=== PATIENT | male | born 2000 | race Caucasian/White ===

== ENCOUNTER 2022-08-25 00:55 | Emergency (ER) | payer MEDICAID ==
[~2022-08-25] VITALS: Ht 177.8 cm; Wt 124.4 kg
[2022-08-25 02:34] LABS: Albumin 4.5 g/dL (3.4-5.0); BUN/Creatinine Ratio 16.7; Calcium 9.7 mg/dL (8.5-10.1); Potassium 4.1 mmol/L (3.5-5.1)
[2022-08-25 02:35] LABS: Basophils # (auto) 0 10 ^3/uL (0-0.2); Eosinophils # (auto) 0 10 ^3/uL (0-0.8); Hemoglobin 18.1 g/dL (13.5-17.5); Lymphocytes # (auto) 1.5 10 ^3/uL (0.4-5.4); Mean Corpuscular Hemoglobin 31.4 pg (28.0-32.0); Mean Corpuscular Volume 90.9 fL (80.0-100.0); Monocytes # (auto) 0.8 10 ^3/uL (0-1.3)
[2022-08-25 02:37] LABS: Basophils % (auto) 0.2 % (0.0-2.0); Bilirubin, Total 1.2 mg/dL (0.2-1.0); Hematocrit 52.2 % (41.0-53.0); Lymphocytes % (auto) 20.2 % (10.0-50.0); Mean Corpuscular Hgb Conc. 34.6 g/dL (32.0-36.0); Monocytes % (auto) 10.4 % (0.0-12.0); Neutrophils % (auto) 69.2 % (37.0-80.0); Nucleated Red Blood Cells % 0.4 %; Red Blood Cells 5.75 10^6/uL (4.5-5.90); Red Cell Distribution Width 12.9 % (11.8-14.3); Total Protein 8.1 g/dL (6.4-8.2); White Blood Cell 7.3 10^3/uL (4.4-10.8)
[2022-08-25] MEDS ORDERED: DICY10CA PO (03:32)
[2022-08-25] MEDS ORDERED: METO-281 PO (03:32)
[2022-08-25] MEDS ORDERED: OMEP-263 PO (03:32)
[2022-08-25 04:56] VITALS: BP 140/88
== END 2022-08-25 04:58 | disposition home or self-care (01) ==
LOC: ER 00:55
DX: K29.70 Gastritis, unspecified, without bleeding (principal); K21.9 Gastro-esophageal reflux disease without esophagitis; Z90.49 Acquired absence of other specified parts of digestive tract
CPT/HCPCS: 36415; 74176; 80053; 82150; 83690; 85025

== ENCOUNTER 2024-07-11 09:11 | Emergency (ER) | payer MEDICAID, OTHER ==
[~2024-07-11] VITALS: Ht 180.3 cm; Wt 122.7 kg
[~2024-07-11 09:11] MED LIST: DICY10CA PO; METO-281 PO; OMEP-448 PO
[2024-07-11 09:30] VITALS: PULSE 114; RESP 11; TEMP 98.6; O2SAT 94
[2024-07-11 09:44] LABS: Mean Corpuscular Volume 96.8 fL (80.0-100.0); Platelet Count (auto) 571 10^3/uL (140-450)
[2024-07-11 09:49] LABS: Hematocrit 50.6 % (41.0-53.0); Hemoglobin 17.9 g/dL (13.5-17.5); Mean Corpuscular Hemoglobin 34.2 pg (28.0-32.0); Mean Corpuscular Hgb Conc. 35.3 g/dL (32.0-36.0); Red Blood Cells 5.23 10^6/uL (4.5-5.90); Red Cell Distribution Width 12.9 % (11.8-14.3); White Blood Cell 9.4 10^3/uL (4.4-10.8)
[2024-07-11 09:53] LABS: Chloride 107 mmol/L (98-107); Potassium 4.1 mmol/L (3.5-5.1); Sodium 142 mmol/L (136-145)
[2024-07-11 09:54] LABS: Anion Gap 9 (5-15); Calcium 9.4 mg/dL (8.7-10.4); Carbon Dioxide 26 mmol/L (20-31)
[2024-07-11 09:59] LABS: BUN/Creatinine Ratio 8.4 (10.0-20.0); Blood Urea Nitrogen 8 mg/dL (9-23); Glucose 104 mg/dL (74-106)
[2024-07-11 10:10] LABS: Basophils % (manual) 0 (0.0-2.0); Blast Cells 0; Metamyelocytes % 0; Myelocytes % 0; Promyelocytes % 0; Reactive Lymphocytes 0
[2024-07-11 11:53] VITALS: BP 146/68; PULSE 103; RESP 14; O2SAT 98
[2024-07-11 12:08] LABS: Band Neutrophils % (manual) 5; Eosinophils % (manual) 1 (0-7); Lymphocytes % (manual) 25 (10.0-50.0); Monocytes % (manual) 5 (0-12); Platelet Estimate Increased
== END 2024-07-11 12:01 | disposition home or self-care (01) ==
LOC: EDUNIT# 09:11 → ER 09:11 → EDBD 09:11 → ER 12:01
DX: S80.11XA Contusion of right lower leg, initial encounter (principal); S00.83XA Contusion of other part of head, initial encounter; R04.0 Epistaxis; K21.9 Gastro-esophageal reflux disease without esophagitis; Z90.49 Acquired absence of other specified parts of digestive tract; Z79.899 Other long term (current) drug therapy; V49.69XA Unspecified car occupant injured in collision with other motor vehicles in traffic accident, initial encounter; Y93.89 Activity, other specified; Y92.89 Other specified places as the place of occurrence of the external cause; Y99.8 Other external cause status
CPT/HCPCS: 36415; 70450; 80048; 85007; 85027